=== PATIENT | male | born 1990 | race Two or more races ===

== ENCOUNTER 2021-09-20 23:20 | Emergency (ER) | payer MEDICAID, OTHER ==
[~2021-09-20] VITALS: Ht 165.1 cm; Wt 74.8 kg
[2021-09-21 04:50] VITALS: BP 126/72
[2021-09-21] MEDS ORDERED: LIDOCAINE 1%HCL (LOCAL ANESTH) 10 ML MDV ONE (07:14)
[2021-09-21] MEDS ORDERED: LIDOCAINE 1% HCL (LOCAL ANESTH.) INJ 20ML MDV IJ ONE (07:15)
[2021-09-21] MEDS ORDERED: CEPH500C PO (07:26)
[2021-09-21] MEDS ORDERED: IBUP600T27 PO (07:26)
== END 2021-09-21 07:29 | disposition home or self-care (01) ==
LOC: ER 23:20 → EDBD 23:20 → ER 09-21 04:40
DX: S01.81XA Laceration without foreign body of other part of head, initial encounter (principal); F17.210 Nicotine dependence, cigarettes, uncomplicated; Z79.1 Long term (current) use of non-steroidal anti-inflammatories (NSAID); Z79.899 Other long term (current) drug therapy; Z88.0 Allergy status to penicillin; W18.39XA Other fall on same level, initial encounter; Y93.89 Activity, other specified; Y92.89 Other specified places as the place of occurrence of the external cause; Y99.8 Other external cause status
CPT/HCPCS: 12013; 70450; 70486; 72125; 99284; J2001

== ENCOUNTER 2021-09-27 02:02 | Emergency (ER) | payer MEDICAID ==
[~2021-09-27] VITALS: Ht 167.6 cm; Wt 74.8 kg
[~2021-09-27 02:02] MED LIST: CEPH500C PO; IBUP600T27 PO
[2021-09-27 02:25] VITALS: BP 126/80
== END 2021-09-27 02:30 | disposition home or self-care (01) ==
LOC: ER 02:02
DX: Z48.02 Encounter for removal of sutures (principal); Z88.0 Allergy status to penicillin